=== PATIENT | male | born 1995 | race Two or more races ===

== ENCOUNTER 2016-11-11 17:22 | Emergency (ER) | payer SELFPAY ==
[~2016-11-11] VITALS: Ht 182.9 cm; Wt 63.0 kg
--- NOTE | ~2016-11-11 | CT4 ---
[facility] A Service of [facility] RADIOLOGY TEXT RESULTS PATIENT: DORYS ORELLANA LOCATION: [place] : 95 UNIT #: [id number] AGE: [address]: Aman Braun DO SEX: M ORDER DR: [id number] [facility] [address] [place], [place] [address] [id number] E MR#: [id number] Acc #: [id number] NAME: DORYS ORELLANA : 1995 SEX: M STUDY DATE/TIME: UNIT: [facility] ROOM: STUDY DESCRIPTION: CT Abd and Pelv Wo Cont Attending Physician: Aman Braun D.O. Ordering Physician: Aman Braun D.O. Primary Care Physician: Primary Care Physician No MEDICAL IMAGING REPORT This report is preliminary unless electronic signature is present EXAM CT abdomen and pelvis 11/11 at 22:38 INDICATIONS Right flank pain with dysuria that started today. Right groin pain as well. TECHNIQUE Axial noncontrast images were obtained through the abdomen and pelvis. Multiplanar reformats were obtained. This CT exam was performed with one or more of the following radiation dose reduction techniques: automatic exposure control, adjustment of mA and/or kV according to patient size, and iterative reconstruction. COMPARISON No comparison. FINDINGS Abdomen: Lung bases are clear. Gallbladder unremarkable. There is mild right hydronephrosis and hydroureter secondary to a 5 mm stone at the right ureterovesical junction. No other stones are seen. Unenhanced solid organs otherwise normal. Unopacified GI tract is normal. No free fluid is seen. Pelvis: No additional stones are seen. The bladder is normal. No free fluid. Unopacified GI tract is within normal limits. IMPRESSION 1. Mild right hydronephrosis and hydroureter secondary to a 5 mm ureterovesical junction stone. No other stones are seen. 2. The remainder the abdomen and pelvis CT is normal. ADDENDUM [facility] A Service of [facility] RADIOLOGY TEXT RESULTS PATIENT: DORYS ORELLANA LOCATION: [facility] : 95 UNIT #: [id number] AGE: [address]: Aman Braun DO SEX: M ORDER DR: There is mild lumbar levoscoliosis. Dictated by... Erich Gordon Jr., M.D. THIS IS AN ELECTRONICALLY VERIFIED REPORT Erich Gordon Jr., M.D. at 11/12/2016 9:14 PM KORI/david TD: 11/12/2016 13:59 JOB #: [id number] MEDICAL IMAGING REPORT Page 1 of 1 COPY
--- NOTE | ~2016-11-11 | US115 ---
[facility] A Service of [facility] RADIOLOGY TEXT RESULTS PATIENT: DORYS ORELLANA LOCATION: [place] : 95 UNIT #: [id number] AGE: [address]: Aman Braun DO SEX: M ORDER DR: [id number] [facility] [address] [place], [place] [address] [id number] E MR#: [id number] Acc #: [id number] NAME: DORYS ORELLANA : 1995 SEX: M STUDY DATE/TIME: 11/11/2016 22:52 UNIT: [facility] ROOM: STUDY DESCRIPTION: US Scrotum and Contents Attending Physician: Aman Braun D.O. Ordering Physician: Aman Braun D.O. Primary Care Physician: No Primary Care Physician MEDICAL IMAGING REPORT This report is preliminary unless electronic signature is present EXAM Scrotal ultrasound, 11/11 at 22:52. INDICATIONS Right testicular pain and swelling for 10 hours. No trauma. FINDINGS Anaya-scale, color flow, and spectral Doppler waveform analysis is performed of the scrotum and contents. Testicles are morphologically normal. No intratesticular masses are seen. Both testicles show normal perfusion by Doppler. The epididymides are within normal limits. IMPRESSION Normal scrotal Doppler ultrasound. Dictated by... Erich Gordon Jr., M.D. THIS IS AN ELECTRONICALLY VERIFIED REPORT Erich Gordon Jr., M.D. at 11/12/2016 9:14 PM KORI/aguilar TD: 11/12/2016 14:11 JOB #: [id number] MEDICAL IMAGING REPORT Page 1 of 1 COPY
[2016-11-11 22:18] LABS: BASOPHIL% 0.2 % (0-2.5); HEMATOCRIT 46.8 % (38.0-50.0); HEMOGLOBIN 16.3 gm/dL (13.0-16.0); LYMPHOCYTE# 0.7 X10e3 (1.0-3.5); LYMPHOCYTE% 5.7 % (17.0-45.0); MEAN CELL VOLUME 85.1 FL (83-96); MEAN CORPUSCULAR HEMOGLOBIN 29.6 PG (28-34); MEAN CORPUSCULAR HGB CONC 34.8 g/dL (30-36); MEAN PLATELET VOLUME 8.4 FL (6.5-11.5); MONOCYTE# 0.7 X10e3 (0-1.0); MONOCYTE% 5.3 % (3.0-12.0); NEUTROPHIL# 11.6 X10e3 (1.5-7.1); NEUTROPHIL% 88.8 % (40-75); PLATELET COUNT 241 X10e3 (140-420); RED BLOOD COUNT 5.49 X10e (3.90-5.60); RED CELL DISTRIBUTION WIDTH 13.2 % (11.0-15.5)
[2016-11-11 22:21] LABS: DIFF IND NO
[2016-11-11 22:43] LABS: BILIRUBIN, DIRECT 0.2 mg/dL (0.0-0.2); BILIRUBIN,INDIRECT 0.5 mg/dL (0.0-0.9); BILIRUBIN,TOTAL 0.7 mg/dL (0.2-2.0); BUN/CREATININE RATIO 16.92; CALCIUM SERUM 9.7 mg/dL (8.4-10.2); CREATININE SERUM 1.3 mg/dL (0.6-1.4); POTASSIUM 4.7 mmol/L (3.5-5.1); PROTEIN TOTAL SERUM 7.7 g/dL (6.0-8.3)
[2016-11-12 00:07] LABS: URINE SOURCE CLEAN CATCH
[2016-11-12 00:24] LABS: URINE APPEARANCE CLOUDY; URINE BILIRUBIN NEG (NEG); URINE BLOOD 3+ (NEG); URINE COLOR DK YELLOW; URINE GLUCOSE NEG (NEG); URINE KETONE 3+ (NEG); URINE LEUKOCYTE ESTERASE TRACE (NEG); URINE NITRATE NEG (NEG); URINE PROTEIN 1+ (NEG); URINE SPECIFIC GRAVITY 1.031 (1.003-1.035)
[2016-11-12 00:26] LABS: CULTURE INDICATED? YES; URBCS1 AUWI 100-200 /[HPF] (0-2); URINE BACTERIA AUWI NEG (NEGATIVE); URINE SQUAMOUS EPITHELIAL CELL OCC /[HPF]
[2016-11-12 00:38] LABS: URINE MUCUS PRESENT
== END 2016-11-12 01:25 | disposition home or self-care (01) ==
LOC: CED 17:22 → EDBD 21:41 → CED 11-12 01:25
DX: N13.2 Hydronephrosis with renal and ureteral calculous obstruction (principal); F17.200 Nicotine dependence, unspecified, uncomplicated
CPT/HCPCS: 36415; 74176; 76870; 80048; 80076; 81003; 83690; 85025; 87086; 93976; 96361; 96374; 96375; 99285; J1885; J2270; J2405

== ENCOUNTER 2016-11-19 00:09 | Emergency (ER) | payer SELFPAY ==
[2016-11-19 01:28] LABS: URINE SOURCE CLEAN CATCH
[2016-11-19 01:39] LABS: URINE APPEARANCE CLEAR; URINE BILIRUBIN NEG (NEG); URINE BLOOD TRACE (NEG); URINE COLOR YELLOW; URINE GLUCOSE NEG (NEG); URINE KETONE NEG (NEG); URINE LEUKOCYTE ESTERASE NEG (NEG); URINE NITRATE NEG (NEG); URINE PROTEIN NEG (NEG); URINE SPECIFIC GRAVITY 1.015 (1.003-1.035); URINE UROBILINOGEN 0.2 MG/DL (NEG)
[2016-11-19 01:41] LABS: URINE BACTERIA AUWI NEG (NEGATIVE); URINE SQUAMOUS EPITHELIAL CELL NONE SEEN /[HPF]
== END 2016-11-19 02:11 | disposition home or self-care (01) ==
LOC: CED 00:09
PROVIDERS: Emergency Medicine
DX: N20.1 Calculus of ureter (principal); F17.200 Nicotine dependence, unspecified, uncomplicated; Z87.442 Personal history of urinary calculi
CPT/HCPCS: 81003; 99283